=== PATIENT | female | born 2000 | race Caucasian/White ===

== ENCOUNTER 2023-06-21 01:09 | Emergency (ER) | payer OTHER, SELFPAY ==
[2023-06-21] VITALS (22 sets, daily range): BP systolic 112–159; BP diastolic 57–96; PULSE 99–126; RESP 14–24; TEMP 36.1–36.9; O2SAT 95–100; BMI 40.6
--- NOTE | 2023-06-21 01:11 | ED.PSYCH ---
HPI - Psych General Chief Complaint: Behavioral Concerns Stated Complaint: etoh drug use SI Source: EMS Mode of arrival: EMS Limitations: altered mental status History of Present Illness HPI Narrative: EMS was called because patient was supposedly trying to jump out of a window. Patient did acid and smoke pot and became psychotic. patient presents screaming trying to grab people trying to jump off of the stretcher complaint: substance abuse and hallucinations Onset (ago): hour(s) Duration: constant Related Data Allergies Allergy/AdvReac Type Severity Reaction Status Date / Time No Known Allergies Allergy Verified 06/21/23 01:23 Review of Systems Review of Systems: Yes Unobtainable due to mental status Neurologic: Denies Sensory deficit (Neuro) [facility] Social History Social History Unable to assess alcohol history related to: Unable to respond Use of substances other than those prescribed or required for medical reasons: Yes Substance Use Type: Other Advance Directives: No Advance Directives Information Provided: Yes Physical Exam Vital Signs: Vital Signs: Last Vital Signs Temp 97.9 F 06/21/23 05:53 Pulse 103 H 06/21/23 05:53 Resp 16 06/21/23 05:53 BP 112/70 06/21/23 05:53 Pulse Ox 95 06/21/23 05:53 O2 Del Method Room Air 06/21/23 05:53 BMI result Body Mass Index 40.6 Const: Other: Screaming, hitting, kicking Orientation/consciousness: oriented to person Limitations: altered mental status HEENT: Head: Yes normal to inspection Ears: external ears normal General nose exam: Normal external nose present Mouth: Normal oral and palatal mucosa present and oropharynx normal Throat: Yes posterior oropharynx normal Eyes: General: appearance normal, both eyes and all related structures Neck: Other: supple Neck: Yes normal visual inspection Chest: Chest palpation & inspection: normal inspection of the chest Resp: Auscultation: clear to auscultation bilaterally Cardio: Jugular venous distension: no JVD Rate: regular rate Rhythm: regular rhythm Heart sounds: S1 normal heart sound present and S2 normal heart sound present GI: Inspection: Yes normal to inspection Palpation (GI): Soft to palpation, nontender and No hepatosplenomegaly present Auscultation: normal bowel sounds : General: Yes no CVA tenderness Back/Spine/Pelvis: Back: no CVA tenderness Skin: General skin exam: no rashes or lesions noted Neuro: General: oriented to person Cranial nerves: Yes CN's II-XII intact bilaterally Motor exam (neuro): 5/5 motor strength present throughout Sensory Exam: No Sensory deficit (Neuro) Extrem: General: Yes normal to inspection Psych: Other: Patient hallucinating screaming Course Reevaluation(s) Reevaluation #1: patient still screaming and thrashing will continue restraints Time: 02:28 Reevaluation #2: Patient is calming down now. She is not ready for full evaluation will allow her to sober up more Time: 06:47 Reevaluation #3: I spent 80 minutes of critical care, with interventions, assessments, speaking to patient, consultants, and family. Time: 06:50 Medications Administered Discontinued Medications Generic Name Dose Route Start Last Admin Trade Name Freq PRN Reason Stop Dose Admin Diphenhydramine HCl 50 mg 06/21/23 01:42 06/21/23 01:47 Diphenhydramine Hcl 50 Mg/Ml Vial IVPUSH 06/21/23 01:43 50 mg ONCE ONE Administration Haloperidol Lactate 10 mg 06/21/23 01:09 06/21/23 01:20 Haloperidol Lactate 5 Mg/Ml Vial IM 06/21/23 01:10 10 mg STAT STA Administration Lorazepam 2 mg 06/21/23 01:09 06/21/23 01:20 Lorazepam 2 Mg/Ml Vial IM 06/21/23 01:10 2 mg STAT STA Administration Lorazepam 4 mg 06/21/23 02:54 06/21/23 03:09 Lorazepam 2 Mg/Ml Vial IVPUSH 06/21/23 02:55 4 mg ONCE ONE Administration Lorazepam 4 mg 06/21/23 03:45 06/21/23 03:49 Lorazepam 2 Mg/Ml Vial IVPUSH 06/21/23 03:46 4 mg ONCE ONE Administration Medical Decision Making Differential Diagnosis Differential Diagnoses: The differential diagnosis associated with the presentation includes (psychosis, substance abuse, agitation, hallucinations) Admission/Observation Consideration of admission/observation: Escalation of care including admission/observation considered (upon arrival patient considered for admission) Lab Data MDM Lab Attestation statement: I reviewed the patient's lab results. (WBC secondary to demargination from stress and drugs) 06/21/23 03:06 06/21/23 02:56 Labs: Lab Results 06/21/23 06/21/23 Range/Units 02:56 03:06 WBC 27.4 H (4.8-10.8) X10*3/uL RBC 4.61 (4.20-5.50) X10*6/uL Hgb 14.4 (12.0-16.0) g/dl Hct 42.6 (37.0-47.0) % MCV 92.4 (80.0-98.0) fL MCH 31.2 (27.0-33.0) pg MCHC 33.8 (31.0-35.0) g/dl RDW 12.7 (11.0-16.0) % Plt Count 315 (160-400) X10*3/uL MPV 9.8 (9.4-12.3) fL Immature Gran % (Auto) 0.6 H (0.0-0.4) % Neut % (Auto) 91.5 H (45-73) % Lymph % (Auto) 3.4 L (20-40) % [place] % (Auto) 4.3 (2-11) % Eos % (Auto) 0.0 (0-4) % Baso % (Auto) 0.2 (0-2) % Lymph # (Auto) 0.9 L (1.2-4.9) X10*3/uL [place] # (Auto) 1.2 (0.1-1.2) X10*3/uL Eos # (Auto) 0.0 (0.0-0.4) X10*3/uL Baso # (Auto) 0.1 (0.0-0.2) X10*3/uL Abs Immat Gran (auto) 0.16 H (0.00-0.03) X10*3/uL Absolute Neuts (auto) 25.1 H (2.0-8.3) x10*3/uL Absolute Nucleated RBC 0.000 (0.0-0.012) X10*3/uL Nucleated RBC % (auto) 0.0 (0.0-0.2) /100WBC Smear Tech's Comments VERIFIED Sodium 140 (135-145) mmol/L Potassium 3.7 (3.3-5.1) mmol/L Chloride 107 (96-108) mmol/L Carbon Dioxide 24 (22-29) mmol/L Anion Gap 13 (12-20) BUN 11 (9-16) mg/dL Creatinine 0.73 (0.5-1.4) mg/dL Estim Creat Clear Calc 140.5 Estimated GFR > 60 Random Glucose 107 (60-115) mg/dL Calcium 9.6 (8.4-10.2) mg/dL Ethyl Alcohol < 10 mg/dL Independent Historian Clinical information obtained from an independent historian. History obtained from or confirmed by: Parent and EMS Tests considered The following testing was considered but not selected: CT of head considered for altered mental status but this was all due to drugs Social Determinants Patient?s care significantly limited by Social Determinants of Health including: Alcoholism and drug addiction in family Discharge Plan Discharge Clinical Impression: Acute psychosis, Drug-induced psychotic disorder Patient Disposition: Still a Patient Print Language: Turkish
[2023-06-21] MEDS: Haloperidol Lactate 5 MG/ML VIAL 10 MG IM (01:20)
[2023-06-21] MEDS: LORazepam 2 MG/ML VIAL IM (01:20)
--- NOTE | 2023-06-21 01:43 | PC.NURSE ---
pt uncooperative, in police custody, restrained and medicated, on bedside monitor.
[2023-06-21] MEDS: diphenhydrAMINE HCL 50 MG/ML VIAL IVPUSH (01:47)
--- NOTE | 2023-06-21 01:50 | PC.NURSE ---
medicated per mar. skin intacted
--- NOTE | 2023-06-21 02:33 | PC.NURSE ---
restrains continued, provider into assess pt.
[2023-06-21] MEDS: LORazepam 2 MG/ML VIAL 4 MG IVPUSH ×2 (03:09→03:49)
--- NOTE | 2023-06-21 03:12 | PC.NURSE ---
Pt medicated per MAR.
[2023-06-21 03:13] LABS: Basophils Absolute Auto 0.1 X10*3/uL (0.0-0.2); Basophils Percent Auto 0.2 % (0-2); Hematocrit 42.6 % (37.0-47.0); Hemoglobin 14.4 g/dl (12.0-16.0); Imm Gran Abs Auto 0.16 X10*3/uL (0.00-0.03); Imm Gran Pct Auto 0.6 % (0.0-0.4); Lymphocytes Absolute Auto 0.9 X10*3/uL (1.2-4.9); Lymphocytes Percent Auto 3.4 % (20-40); MANUAL DIFF FLAG SCAN; Mean Corpuscular HGB Conc 33.8 g/dl (31.0-35.0); Mean Corpuscular Hemoglobin 31.2 pg (27.0-33.0); Mean Corpuscular Volume 92.4 fL (80.0-98.0); Mean Platelet Volume 9.8 fL (9.4-12.3); Monocytes Absolute Auto 1.2 X10*3/uL (0.1-1.2); Monocytes Percent Auto 4.3 % (2-11); Neutrophils Absolute Auto 25.1 x10*3/uL (2.0-8.3); Neutrophils Percent Auto 91.5 % (45-73); Platelet Count 315 X10*3/uL (160-400); Red Blood Count 4.61 X10*6/uL (4.20-5.50); Red Cell Distribution Width 12.7 % (11.0-16.0); SCAN SMEAR FLAG 1; White Blood Count 27.4 X10*3/uL (4.8-10.8)
[2023-06-21 03:29] LABS: Anion Gap 13 (12-20); Blood Urea Nitrogen 11 mg/dL (9-16); Calcium 9.6 mg/dL (8.4-10.2); Carbon Dioxide 24 mmol/L (22-29); Chloride 107 mmol/L (96-108); Creatinine Clr Calc Pharmacy 140.5; Estimated Glomerular Filt Rate > 60; Ethanol < 10 mg/dL; Glucose Random 107 mg/dL (60-115); Potassium 3.7 mmol/L (3.3-5.1); Sodium 140 mmol/L (135-145)
[2023-06-21 03:30] LABS: SLIDE REVIEW VERIFIED
--- NOTE | 2023-06-21 03:56 | PC.NURSE ---
pt continue to uncooperative, yelling, unaware of her surrounding. medicated per mar.
--- NOTE | 2023-06-21 05:07 | PC.NURSE ---
Pt is released for physical restrains, pt is clam at this time.
--- NOTE | 2023-06-21 05:08 | PC.NURSE ---
Addendum entered by Julissa Pearce 06/21/23 06:40: [id number] Original Note: pt father is Ruddy, [phone]
--- NOTE | 2023-06-21 06:38 | PC.NURSE ---
pt changed over, able answer question appropriately at this time.
--- NOTE | 2023-06-21 09:54 | PC.NURSE ---
patient is awake and alert, oriented x4. patient does not remember the past nights events. patient is tearful. [place] [facility] [place]. patient was given breakfast this morning, sitter at bedside for safety.
[2023-06-21] MEDS: 0.9 % Sodium Chloride 1,000 ML 999 ML IV (12:04)
--- NOTE | 2023-06-21 12:13 | PC.NURSE ---
patients dad is at bedside, patient is tearful, still does not remember the events from prior night. patient remains pleasant, and cooperative, IV fluids started, urine sample collected.
[2023-06-21 12:34] LABS: UPreg QC Valid YES; Urine Pregnancy NEGATIVE (NEGATIVE)
[2023-06-21 12:41] LABS: Amphetamine Screen Urine Not Detected (Not Detect); Barbiturates, Urine Not Detected (Not Detect); Benzodiazepines Screen Urine Not Detected (Not Detect); Buprenorphine Scr Not Detected (Not Detect); Cannabinoid Screen Urine POSITIVE (Not Detect); Cocaine Screen Urine Not Detected (Not Detect); Fentanyl, urine Not Detected (Not Detect); Methadone Screen, Urine Not Detected (Not Detect); Opiate Screen Urine Not Detected (Not Detect); Oxycodone Screen Urine Not Detected (Not Detect); Phencyclidine Screen Urine Not Detected (Not Detect)
--- NOTE | 2023-06-21 13:00 | PC.NURSE ---
patient IV came out, MD hamm'd d/c of fluids. patient currently asleep respirations equal and unlabored.
--- NOTE | 2023-06-21 16:56 | PC.NURSE ---
patient appears to be asleep, respirations equal and unlabored, skin dry and intact. patient becoming more alert and oriented, dad at bedside.
--- NOTE | 2023-06-21 17:27 | PC.NURSE ---
patient sitting up, eating ice cream. patient is alert and oriented x3. dad at bedside, awaiting d/c paperwork
--- NOTE | 2023-06-21 18:08 | PC.NURSE ---
patient discharged with belongings, patient ambulated with steady gait. patient safe discharge with her dad.
== END 2023-06-21 18:10 | disposition home or self-care (01) ==
PROVIDERS: Emergency Provider Emergency Medicine; PCP Registered Nurse Rehabilitation
DX: F23 Brief psychotic disorder (principal); F16.959 Hallucinogen use, unspecified with hallucinogen-induced psychotic disorder, unspecified; F12.959 Cannabis use, unspecified with psychotic disorder, unspecified
CPT/HCPCS: 36415; 80048; 80307; 81025; 85025; 96361; 96372; 96374; 96375; 96376; 99284; 99285; J1200; J1630; J2060